=== PATIENT | female | born 1985 | race Caucasian/White ===

== ENCOUNTER → 2019-11-09 13:23 | Outpatient (CLI) | payer BC, SELFPAY ==
--- NOTE | ~2019-11-09 | XR_ITS ---
XR ankle LT min 3V 11/09/2019 14:35 INDICATION: Left ankle pain PROCEDURE: 4 views left ankle COMPARISON: No prior studies for comparison. FINDINGS: Fracture, dislocation or subluxation is not identified. Ankle mortise intact. The soft tiss ues appear within normal limits. No foreign bodies are identified. IMPRESSION: 1: NO ACUTE BONE OR JOINT ABNORMALITY IDENTIFIED. Reviewed, dictated and finalized at location A.
== END ==
PROVIDERS: PCP Family Medicine; Visit Provider Nurse Practitioner Family
DX: S93.402A Sprain of unspecified ligament of left ankle, initial encounter (principal)
CPT/HCPCS: 73610

== ENCOUNTER 2020-05-17 09:18 | Emergency (ER) | payer BC, SELFPAY ==
--- NOTE | ~2020-05-17 | XR_ITS ---
XR lumbar spine 2-3V DATE: 05/17/2020 10:00 INDICATION: Mid low back pain TECHNIQUE: AP, lateral, coned lateral lumbosacral views COMPARISON: None FINDINGS: There is mild anterior wedge compression fracture deformity of T12. Normal alignment of the lumbar spine. There is mild levoscoliosis of the lower thoracic and lumbar sp ine. The included lower thoracic and lumbar pedicles are intact. Lumbar and lumbosacral interspaces appear relatively preserved. The sacroiliac joints are normal. IUD overlies the central pelvis. IMPRESSION: Mild anterior wedge compression fracture deformity of T12 Reviewed, dictated and finalized at location A.
--- NOTE | ~2020-05-17 | CT_ITS ---
CT thoracic lumbar wo con DATE: 05/17/2020 11:19 INDICATION: Fracture TECHNIQUE: Axial images and sagittal and coronal reconstructions of the thoracic and lumbar spine Exam dose: 1045.95 mGy-cm total exam DLP. COMPARISON: 05/17/2020 lumbar spine FINDINGS: There is and anterior wedge burst fracture of T12 with minimal superior retropulsion and up to approximately one third maximal loss of height of this vertebral body. There is dextroscoliosis of the thoracic spine. No other fracture or bone destruction is evident. IMPRESSION: T12 burst fracture Reviewed, dictated and finalized at Location A. Reviewed, dictated and finalized at location A. IMPRESSION: T12 burst fracture
[2020-05-17 09:20] VITALS: BP 172/74; PULSE 96; RESP 20; TEMP 36.7; O2SAT 100
[2020-05-17] MEDS: HYDROcodone/acetaminophen (*CRX) 5-325 MG TABLET 1 TAB PO ×2 (09:59→17:36)
[2020-05-17 10:55] VITALS: BP 126/74; PULSE 74; RESP 18; O2SAT 100
--- NOTE | 2020-05-17 13:02 | ED.BACK ---
HPI - Back Pain/Injury General Chief Complaint: Back Pain/Injury Stated Complaint: BACK PAIN Time Seen by Provider: 05/17/20 09:24 Source: patient and family Mode of arrival: ambulatory Limitations: no limitations History of Present Illness HPI Narrative: 35-year-old with no major medical problems here with complaints of sudden onset of back pain since this morning. Patient states that she was exercising and fell backwards and ever since then she has been having pain in the upper part of her lumbar area. She denies any bladder or bowel incontinence.Pt is ambulatory. She also complains of some tingling sensation in her fingers MD elicited complaint: back injury Pertinent past history: recent trauma Timing: constant Severity: moderate Quality: aching Location: lumbar spine and thoracic spine Exacerbating factors: movement Relieving factors: immobilization Context: fall Associated symptoms: denies other symptoms Related Data Home Medications Medication Instructions Recorded Confirmed fluticasone propion-salmeterol INHALATION 05/17/20 [Advair Diskus] mometasone [Asmanex Twisthaler] INHALATION 05/17/20 Allergies Allergy/AdvReac Type Severity Reaction Status Date / Time tetracycline Allergy Unknown Swelling Verified 05/17/20 09:28 of Lip/Tongue/Throat Review of Systems Review of Systems: All systems reviewed & are unremarkable except as noted in HPI and below Constitutional: Constitutional: Reports no additional constitutional complaints Eyes: Eyes: Reports no additional eye complaints ENT: Reports system reviewed and no additional complaints, except as documented Cardiovascular: Cardiovascular: Reports no additional cardiovascular complaints Respiratory: Respiratory: Reports no additional respiratory complaints Gastrointestinal: Gastrointestinal: Reports no additional gastrointestinal complaints Musculoskeletal: Musculoskeletal: Reports as per HPI Neurologic: Reports system reviewed and no additional complaints, except as documented Endocrine: Endocrine: Reports no additional endocrine complaints PMFSH Family History Family History Grandparent Family history of osteoporosis Family history of osteoarthritis Father Family history of rheumatoid arthritis Social History Social History Smoking status: Never smoker Alcohol intake: current Gender identity (if verbalized by the patient): Female Exam Narrative: Exam Narrative: GENERAL: Well-appearing, well-nourished, and in no acute distress. HEAD: Normocephalic, atraumatic. EYES: PERRLA and EOMI.. NECK: Supple. CHEST: Clear to auscultation. No respiratory distress. HEART: Regular rate and rhythm. No murmur heard. Normal peripheral pulses. ABDOMEN: Soft, nontender, nondistended, normal active bowel sounds. EXTREMITIES: Normal range of motion. No edema. Back Pain in the upper lumbar area SKIN: Warm, dry, no rash. NEURO: No focal deficits. Alert and oriented x3. PSYCH: Normal mood and affect. Course Course Emergency Course: Patient states as long as she is laying on the left side she feels comfortable there is no bladder or bowel incontinence there is no neuro deficit. I discussed CT findings with the patient and her . I also discussed this case with Dr. Chau recommended patient to be transferred to [facility] for neurosurgical evaluation. Patient does feel comfortable getting transferred. Vital Signs Vital signs: Vital Signs Temperature 36.7 C 05/17/20 09:20 Pulse Rate 96 05/17/20 09:20 Respiratory Rate 20 05/17/20 09:20 Blood Pressure 172/74 H 05/17/20 09:20 Pulse Oximetry 100 05/17/20 09:20 Temperature 36.7 C 05/17/20 09:20 Pulse Rate 90 05/17/20 14:41 Respiratory Rate 17 05/17/20 14:41 Blood Pressure 127/67 05/17/20 14:41 Pulse Oximetry 100 05/17/20 14:41 MDM - Back Pain
[2020-05-17 14:41] VITALS: BP 127/67; PULSE 90; RESP 17; O2SAT 100
[2020-05-17 15:42] VITALS: BP 132/84; PULSE 88; RESP 16; TEMP 36.8; O2SAT 98
[2020-05-17 17:00] VITALS: BP 142/70; PULSE 78; RESP 16; O2SAT 99
--- NOTE | 2020-05-17 17:16 | PC.NURSE ---
called [facility], cannot do transfer not enough staff, called [facility], long wait time also 1600, if no 911 calls 2-2 1/2 hrs., called [facility], 1610 cannot do , 1640 will not have a truck., waiting [facility] [id number].
[2020-05-17 18:58] VITALS: BP 143/79; PULSE 98; RESP 18; O2SAT 99
== END 2020-05-17 19:00 | disposition short-term general hospital (02) ==
PROVIDERS: Emergency Provider Family Medicine; PCP Family Medicine
DX: S22.081A Stable burst fracture of T11-T12 vertebra, initial encounter for closed fracture (principal); W18.39XA Other fall on same level, initial encounter; Y93.B9 Activity, other involving muscle strengthening exercises
CPT/HCPCS: 72100; 72128; 72131; 81025; 99285; A9270

== ENCOUNTER → 2020-06-16 16:19 | Outpatient (CLI) | payer BC, SELFPAY ==
--- NOTE | ~2020-06-16 | XR_ITS ---
EXAMINATION: XR thoracolumbar DATE: 06/16/2020 16:48 INDICATION: Burst fracture of T12 vertebra. TECHNIQUE: 2 views of the thoracolumbar spine were obtained. COMPARISON: CT 05/17/2020 FINDINGS: There is 15 degrees levoscoliosis of thoracolumbar spine. There is a burst fracture of T12 with 2/5 loss of height and mild focal kyphosis. Intervertebral disc heights are normal. IMPRESSION: 1. T12 burst fracture, stable from 05/17/2020. 2. Thoracolumbar levoscoliosis. Reviewed, dictated and finalized at location A.
== END ==
DX: S22.081D Stable burst fracture of T11-T12 vertebra, subsequent encounter for fracture with routine healing (principal); X58.XXXD Exposure to other specified factors, subsequent encounter
CPT/HCPCS: 72080

== ENCOUNTER → 2020-08-05 08:52 | Outpatient (CLI) | payer BC, SELFPAY ==
--- NOTE | ~2020-08-05 | XR_ITS ---
EXAMINATION: XR thoracic spine 2V DATE: 08/05/2020 09:14 INDICATION: T12 burst fracture TECHNIQUE: AP, lateral and lateral swimmer's views of the thoracic spine were obtained. COMPARISON: 06/16/2020 FINDINGS: There are 15 degrees of unchanged thoracolumbar levoscoliosis. There is a stable T12 burst fracture with approximately 2/5 loss of height. No additional fracture is identified. The interverteb ral disc spaces are maintained. IMPRESSION: 1. Stable T12 burst fracture. Reviewed, dictated and finalized at location A.
== END ==
DX: S22.081D Stable burst fracture of T11-T12 vertebra, subsequent encounter for fracture with routine healing (principal); X58.XXXD Exposure to other specified factors, subsequent encounter
CPT/HCPCS: 72070

== ENCOUNTER → 2020-08-08 10:14 | Outpatient (CLI) | payer BC, SELFPAY ==
--- NOTE | ~2020-08-08 | XR_ITS ---
EXAMINATION: XR thoracolumbar INDICATION: Burst fracture of T12, follow-up TECHNIQUE: AP and lateral in neutral, flexion, and extension views of the thoracolumbar spine are obt ained. COMPARISON: 08/05/2020, 06/16/2020 FINDINGS: There is an unchanged burst fracture of T12 with approximately 2/5 loss of height. No obser vable change is noted with flexion or extension. No additional fracture is identified. The interverte bral disc space heights are normal. There are 15 there is a 5 mm stone of the left kidney. Degrees of thoracolumbar levoscoliosis. IMPRESSION: 1. T12 burst fracture without significant change. Reviewed, dictated and finalized at location A.
== END ==
PROVIDERS: PCP Family Medicine
DX: S22.081A Stable burst fracture of T11-T12 vertebra, initial encounter for closed fracture (principal); X58.XXXA Exposure to other specified factors, initial encounter
CPT/HCPCS: 72080

== ENCOUNTER → 2022-12-01 12:49 | Outpatient (CLI) | payer BC, SELFPAY ==
--- NOTE | ~2022-12-01 | US_ITS ---
Renal-Bladder ultrasound Clinical History: Flank pain Technique: Real-time sonographic imaging of the kidneys and urinary bladder was performed. Findings: The right kidney measures 12.8 cm in length and the left kidney measures 12.3 cm. There is no hydronephrosis or renal calculus identified. Renal cortical echogenicity is within normal limits. No renal mass lesion is identified. The urinary bladder is moderately distended at the time of this exam. No intraluminal echoes are iden tified. No abnormal wall thickening is seen. Impression: Unremarkable ultrasound of the kidneys and urinary bladder. Reviewed, dictated and finalized at location M. Impression: Unremarkable ultrasound of the kidneys and urinary bladder.
== END ==
PROVIDERS: PCP Nurse Practitioner Family; Visit Provider Nurse Practitioner Family
DX: R10.9 Unspecified abdominal pain (principal)
CPT/HCPCS: 76775

== ENCOUNTER 2024-11-23 10:54 | Outpatient (CLI) | payer BC, SELFPAY ==
--- NOTE | 2024-11-23 11:18 | ECG_ITS ---
Test Date: 2024-11-23 11:27:44 Measurements Intervals [place] Rate: 70 P: 37 DE: 132 QRS: 57 QRSD: 106 T: 6 QT: 377 QTc: 407 Interpretive Statements SINUS RHYTHM BORDERLINE ST-T WAVE ABNORMALITY- ANT/INF LEADS BASELINE ARTIFACT- II, III, AVF, V3-V6 BORDERLINE ECG No previous ECG available for comparison Electronically Signed On 11-23-2024 12:12:47 CDT by Rico Camacho D.O.
== END 2024-11-23 10:55 | disposition home or self-care (01) ==
PROVIDERS: PCP Nurse Practitioner Family
DX: Z13.6 Encounter for screening for cardiovascular disorders (principal); R94.31 Abnormal electrocardiogram [ECG] [EKG]
CPT/HCPCS: 93005